=== PATIENT | male | born 1940 | race Caucasian/White ===

== ENCOUNTER 2025-10-10 10:52 | Outpatient (AMB) | payer MEDICARE, SELFPAY ==
--- NOTE | 2025-10-10 10:53 | A.OFFVIS_ITS ---
Intake Visit Reasons: 6m Accompanied by: Spouse Allergies No Known Allergies Allergy (Verified 10/10/25 11:00) Medication List - Last Reconciled 10/10/25 by Zoraida Houston CNP donepezil 10 mg PO BEDTIME 90 days finasteride 5 mg PO DAILY losartan 50 mg PO DAILY pravastatin 40 mg PO BEDTIME primidone 50 mg PO BID HPI Comments Details: He was doing okay. Memory was about the same, forgetful at times and some days were better than others. He has trouble with names, especially if it is someone new. He was driving without issue. He was still going to [employer] in the morning for breakfast with friends. Tremors in hands were better with primidone twice a day, worse when nervous. Tremors could also be more if the weather was bad.?No functional impairment. No difficulty eating, drinking, or swallowing. No mobility problems. No falls. Mood was okay. Sleep at night was so-so, and he was napping during the day. 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 Had shingles end of 01/2023 in left thoracic. He lives with his of 45+ years and has 3 grown children, grandchildren, and great grandchildren. Starting in 2014, he noted some decrease in his memory for names and birthdays. Sometimes he repeats himself and occasionally while driving forgets where he is going and for what purpose. There is no family history of tremor or dementia. There is no gait problem or bladder control problems. [facility] Medical History (Updated 10/10/25 @ 10:59 by Zoraida Houston CNP) Hypercholesteremia Hypertension Benign essential tremor MCI (mild cognitive impairment) Review of Systems Const Denies chills, Denies daytime sleepiness, Reports difficulty sleeping, Denies fatigue, Denies fever(s), Denies frequent falls, Denies headache(s), Denies increased appetite, Denies poor appetite, Denies snoring, Denies weakness, Denies weight gain and Denies weight loss Eyes Denies loss of vision ENT Denies vertigo, Denies dizziness, Denies headache(s) and Denies neck pain Card Denies chest pain at rest, Denies chest pain with activity, Denies syncope, Denies leg edema, Denies palpitations, Denies dyspnea and Denies dyspnea on exertion Resp Denies cough, Denies dyspnea, Denies dyspnea on exertion and Denies snoring GI Denies abdominal pain, Denies constipation, Denies heartburn, Denies diarrhea and Denies nausea Reports urinary frequency, Denies urinary incontinence and Denies urinary urgency Musc Denies abnormal gait, Denies back pain, Denies myalgias, Denies arthralgias, Denies neck pain, Denies numbness and Denies tingling Neuro Denies abnormal gait, Denies vertigo, Denies dizziness, Denies syncope, Denies frequent falls, Denies headache(s), Denies lack of coordination, Denies loss of vision, Reports memory loss, Denies numbness, Denies Other visual disturbances, Denies restless legs, Denies seizure-like activity, Denies tingling, Denies paresthesias, Reports tremor(s) and Denies weakness Psych Reports anxiety, Denies depression, Denies auditory hallucinations, Reports memory loss and Denies visual hallucinations Endo Denies fatigue and Denies palpitations Physical Exam Const Other: General Appearance:? normal, in no acute distress. Heart:? S1, S2 normal, no murmurs. Lungs:? clear anteriorly and posteriorly. Musculoskeletal:? normal. Extremities:? no edema. Psych:? alert, as below. Neuro Other: Abnormal Neurological Findings:?Fine tremors of hands when held in an extended position, R > L. Intermittent, very brief [id number] head tremor, lasting no more than 3-4 seconds. No rigidity, cogwheeling, or resting tremor. Normal gait, arm swing, and posture. No bradykinesia or bradyphrenia. MMSE 25/30. Mental Status: alert, as below. Cranial Nerves: Pupils are equal, round, and reactive to light. External ocular muscles are intact. Visual are full, no ptosis. Face is symmetrical, no facial weakness or droop. Facial sensations are normal. Tongue protrudes in midline. Palate elevates symmetrically. Shoulder shrugging is normal Motor Examination: Normal muscle tone, bulk and strength. No atrophy or fasciculations. No drift of the extended upper extremities. DTR 2+. Plantars are flexor. Sensory Exam: Normal light touch, temperature, pinprick, vibration, and joint- position sensations. Rhomberg sign is absent. Coordination: No ataxia. No titubation. Gait Exam: Within normal limits. Cerebellar Signs: [id number] with mild tremor. Extrapyramidal System: Tremor as above. No rigidity with normal facial expressions. No bradykinesia. No bradyphrenia. Normal arm swing and posture. No propulsion or retropulsion. Speech: Normal. MMSE Level of Consciousness: Alert. Orientation: Knows correct year, month, day, date, and season. Knows correct city, county and state. Knows correct location and floor. Registration: Able to register 3 objects. Attention: Serial 7's performed accurately to 93. Recall: Able to recall 2 out of 3 objects. Language: Normal spontaneous speech, fluency, repetition, naming, comprehension, reading, and writing. Total Score: 25/30. Results Reviewed Results Reviewed: 11/30/16 awake and drowsy EEG is within normal limits 11/30/16 CT brain normal. Labs normal. Assessment & Plan Assessment & Plan (1) MCI (mild cognitive impairment): Code(s): G31.84 - Mild cognitive impairment of uncertain or unknown etiology Category: Medical Plan: Continue donepezil 10mg 1 tablet at bedtime. Discussed trying memantine, declining at this time. Stay physically and socially active. (2) Benign essential tremor: Code(s): G25.0 - Essential tremor Category: Medical Plan: Continue primidone 50mg 1 tablet twice a day. Medications: New primidone 50 mg PO BID 180 tabs 1RF 90 days Coding Level of Care Code Est Pt Level 4 (66984) Diagnoses MCI (mild cognitive impairment) G31.84 Benign essential tremor G25.0
--- OUTSIDE RECORDS SUMMARY | 2025-10-10 12:43 | XMS_ITS | Clinical Summary ---
Author Organization [facility] Address [address] [place] [address] Care Team Providers Care Lumber Checker Name Role Phone Gurpreet Blandon DO Primary Care Provider [phone] Surgical History Surgery Date Site/Laterality Comments CARPAL TUNNEL RELEASE Right PROCEDURE: HISTORICAL CARPAL TUNNEL REL OTHER SURGICAL HISTORY Right PROCEDURE: AR AMP F/TH 11/09 JT/PHALANX W/NEURECT W/DIR CLSR; COMMENT: thumb SHOULDER SURGERY Right PROCEDURE: HISTORICAL SHOULDER SURGERY; COMMENT: RTC repair APPENDECTOMY PROCEDURE: HISTORICAL APPENDECTOMY TONSILLECTOMY PROCEDURE: HISTORICAL TONSILLECTOMY; COMMENT: and adenoidectomy Medical History Medical History Date Comments BPH (benign prostatic hyperplasia) 09/20/2019 DX:BPH (benign prostatic hyperplasia) Hyperlipidemia 09/20/2019 DX:Hyperlipidemi a Bronchiectasis without compl ication (CMS/HCC V24, CMS/HCC V28) 05/01/2019 DX:Bronchiectasis without complication (HCC) Exposure to TB 05/01/2019 DX:Exposure to T B Allergic rhinitis 09/20/2019 DX:Allergic rh initis Asthma 09/20/2019 DX:Asthma Anxiety 09/20/2019 DX:Anxiety 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 DX:Traumatic amputation of t humb (complete) (partial); COMMENT: right Hiatal hernia 09/20/2019 DX:Hiatal hernia Social History Tobacco Use Types Packs/Day Years Used Date Smoking Tobacco: Never Smokeless Tobacco: Never Alcohol Use Standard Drinks/Week Comments No 0 (1 standard drink = 0.6 oz pur e alcohol) Sex and Gender Information Value Date Recorded Sex Assigned at Not on file Legal Sex Male 6:35 AM EST Gender Identity Not on file Sexual Orientation Not on file Obstetrics History Plan of Treatment Health Maintenance Due Date Last Done Comments DTaP,Tdap,and Td Vaccines (1 - Tdap) 1959 Pneumococcal Vaccine: 50+ Ye ars (1 of 2 - PCV) 1958 Zoster Vaccines (1 of 2) 1989 RSV Immunization Adult Patie nts (1 - 1-dose 75+ series) 2014 Cholesterol Screening (Lipid Panel) 10/11/2022 Falls Risk Assessment 10/11/2022 Social Influencers of Health Screening 10/11/2022 Depression Screening 11/08/2024 COVID-19 Vaccine (1 - 2024-2 6 season) 2025 Influenza Vaccine (#1) 2025 HIB Vaccines Aged Out No longer eligi ble based on patient's age to complete this topic HPV Vaccines Aged Out No longer eligi ble based on patient's age to complete this topic Hepatitis A Vaccines Aged Out No long er eligible based on patient's age to complete this topic Hepatitis B Vaccines Aged Out No long er eligible based on patient's age to complete this topic IPV Vaccines Aged Out No longer eligi ble based on patient's age to complete this topic MMR Vaccines Aged Out No longer eligi ble based on patient's age to complete this topic Meningococcal ACWY Vaccine Aged Out N o longer eligible based on patient's age to complete this topic Meningococcal B Vaccine Aged Out No l onger eligible based on patient's age to complete this topic RSV Immunization Patients Un staci 20 months Aged Out No longer eligible b ased on patient's age to complete this topic Varicella Vaccines Aged Out No longer eligible based on patient's age to complete this topic Advance Directives Documents on File Type Date 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
== END 2025-10-10 11:16 | disposition home or self-care (01) ==
LOC: HO.HSM 10:52
PROVIDERS: PCP Family Medicine; Referring Provider Family Medicine; Visit Provider Registered Nurse
DX: G31.84 Mild cognitive impairment of uncertain or unknown etiology (principal); G25.0 Essential tremor
CPT/HCPCS: 99214

== ENCOUNTER → 2025-10-10 10:52 | Outpatient (BNVA) | payer MEDICARE, SELFPAY | PROVIDERS: PCP Family Medicine; Referring Provider Family Medicine; Visit Provider Registered Nurse | DX: G31.84 Mild cognitive impairment of uncertain or unknown etiology (principal); G25.0 Essential tremor | CPT/HCPCS: 99212 ==